=== PATIENT | female | born 1955 | race Caucasian/White ===

== ENCOUNTER 2018-03-26 09:35 | Emergency (ER) | payer OTHER ==
--- OUTSIDE RECORDS SUMMARY | 2018-03-26 09:42 | XMS REPORT ---
:1955 External Reference #:[id number] Author Organization [email or web address] Address [address] [place] [address] [place] [address] Phone [phone] Care Team Providers Name Role Phone Olga Bradford MD Primary Care Physician Unavailable Payers Type Date Identification Numbers Payment Provider Subscriber Commercial Effective: Policy Number: [id number] Formerly [facility], Later [facility] Uriel Clemons 2012 Group Number: [id number] [address] PayID: [id number] [place] [address] Medigap Part B Expires: 2012 Policy Number: [id number] [facility] Uriel Clemons Group Number: [id number] [address] PayID: [id number] [place] [address] Advance Directives Type Date Description Status Comment Other Directive 06/05/2015 Health Care Proxy Current and Verified Problems Date Description Provider Status Onset: 05/14/2016 Gastroesophageal reflux disease Gifty Gamble N.P. 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 Quit in 1981 Exercise Type/Frequency Exercises regularly Recumbent bike Allergies, Adverse Reactions, Alerts Date Description Reaction Status Severity Comments 05/25/2010 Erythromycin chest pain active Moderate 05/02/2015 Tegaderm active 10/28/2016 Macrobid Contact dermatitis, Urticaria active Moderate 04/13/2017 Oxycodone Contact dermatitis active Moderate 06/15/2017 Nickel active 06/15/2017 Zirconium Oxide active 06/15/2017 Aluminum active Medications Medication Date Status Form Strength Qnty SIG Indications Ordering Provider Hydrochlorothiazi 01/27 Active Tablets 25mg 90tab /2-1 by R60.0 s mouth Varn, N.P. every day Ventolin HFA 10/28 Active Aerosol 108(90Bas 1inha 1 to 2 J01.90 e) ler inhalatio Varn, N.P. mcg/Act ns every 4 hours as needed Compression 06/14 Active Misc 2unit knee high R60.0 Gifty Stockings s stockings Varn, N.P. 20 - 30 mm Fluticasone 12/14 Active Suspension 50mcg/Act 29.7m 1 spray J20.9 Gifty Propionate l each Varn, N.P. nostril twice a day Amoxicillin 05/01 Active Capsules 500mg 16cap take 4 s capsules Varn, N.P. by mouth 30 mintues before dental work Omeprazole 03/[address] 20mg 90cap take 1 K21.9 s capsule Varn, N.P. by mouth daily Cetirizine HCL Active Tablets 10mg 1 by Unknown /0000 mouth every day Melatonin Active Capsules 5mg 1 by Unknown /0000 mouth every night Aspirin Active Tablets 325mg 2 by Unknown /0000 mouth every day prn Ciclopirox Active Gel 0.77% apply to Unknown /0000 affected area twice a day Multi Vitamin Active Tablets 1 by Unknown Daily /0000 mouth every day Ciprofloxacin HCL 01/31 Hx Tablets 250mg 6tabs 1 by Olga /2018 mouth Cotton, - twice a M.D. 03/06 day for days Bactrim DS 07/19 Hx Tablets 800-160mg 10tab 1 by N39[address], - twice a M.D. 07/24 day x days Premarin 07/19 Hx Cream 0.625mg/G 1unit [address], - on by way M.D. 01/26 of 3 x weekly x 4 wks then 2 times a week for 3 wks then 1 time per week x 4 wks then stop Cipro 11/30 Hx Tablets 250mg 14tab one by N39.0 s nouth Varn, N.P. - twice 12/07 daily 7 days Amoxicillin/Clavu 10/28 Hx Tablets 875-125mg 20tab one J01.90 Gifty lanate Potassium s tablet by Varn, N.P. - mouth 11/07 daily for 10 days Cheratussin ac 10/28 Hx Syrup 100-10mg/ 120ml 1 -2 J01.90 5ML teaspoons Varn, N.P. 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 - twice 05/31 daily 7 days Macrobid 05/24 Hx Capsules 100mg 30cap 1 po N39.0 s postcoita Varn, N.P. 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 Levaquin 01/11 Hx Tablets 500mg 7tabs 1 by mouth Varn, N.P. - daily for 01/18 7 Amoxicillin/Clavu 01/06 Hx Tablets 875-125mg 20tab one J20.9 Gifty lanate Potassium s tablet by Varn, N.P. - mouth 01/11 daily for 10 days Flovent HFA 01/06 Hx Aerosol 110mcg/Ac 12gm 2 puffs J20.9 t twice Varn, N.P. - daily 01/20 Hydrochlorothiazi 01/06 Hx Tablets 25mg 30tab 1 by R60.0 Gifty s mouth Varn, N.P. - every day 04/06 Augmentin 12/14 Hx Tablets 875-125mg 20tab one by J01.00 s mouth Varn, N.P. - every 12 12/26 hours for ten days Ventolin HFA 12/14 Hx Aerosol 108(90Bas 1inha 1 to 2 J20.9 e) ler inhalatio Varn, N.P. - mcg/Act ns every 12/28 4 hours as needed Medrol 12/14 Hx Tablets 4mg 21tab 6 by J20.9 s mouth day Varn, N.P. - 1 5 by 12/20 mouth 2 4 by mouth day 3 3 by mouth day 4 2 by mouth day 5 1 by mouth day 6 Augmentin 08/25 Hx Tablets 875-125mg 20tab one by J01.00 s mouth Varn, N.P. - every 12 09/04 hours ten days Cipro 08/06 Hx Tablets 250mg 14tab one by N39.0 s nouth Varn, N.P. 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 - every day 06/14 Amoxicillin/Clavu 11/19 Hx Tablets 875-125mg 20tab one 461.0 Gifty lanate Potassium s tablet by Varn, N.P. - mouth 11/29 twice daily for 10 days Amoxicillin/Clavu 09/30 Hx Tablets 875-125mg 20tab one 461.0 [place] lanate s tablet by Varn, N.P. - mouth 10/10 twice daily for 10 days Benzonatate 09/30 Hx Capsules 100mg 30cap one by 461.0 s mouth Varn, N.P. - three 10/10 times daily as needed for cough Fluticasone 09/30 Hx Suspension 50mcg/Act 16gm 2 sprays 461.0 Gifty Propionate each Varn, N.P. - nostril 06/05 daily as needed Tamiflu 09/26 Hx Capsules 75mg 10cap 1 tab by 465.9 Olga /2015 s mouth Cotton, - twice a M.D. 01/02 day for days Cipro 08/22 Hx Tablets 250mg 14tab one by 599.0 s nouth Varn, N.P. - twice 08/29 daily for 7 days Fluticasone 03/21 Hx Suspension 50mcg/Act 16gm 1 sprays 477.9 Gifty each Varn, N.P. - nostril 08/22 daily /2014 Cipro 08/27 Hx Tablets 500mg 20tab 1 po bid s for 10 Varn, N.P. - days 09/06 Ciprofloxacin HCL 08/22 Hx Tablets 250mg 14tab one po 599.0 s bid for 7 Varn, N.P. - days 08/29 Fluticasone 08/22 Hx Suspension 50mcg/Act 16gm 2 sprays 477.9 Gifty Propionate each Varn, N.P. - nostril 03/21 daily as needed Augmentin 07/16 Hx Tablets 875-125mg 20tab one by Gifty s mouth Varn, N.P. - every 12 07/26 hours for ten days Augmentin 07/02 Hx Tablets 875-125mg 14tab one by Gifty /2013 s mouth Varn, N.P. - every 12 12/09 hours for 7 days Ciprofloxacin HCL 06/26 Hx Tablets 250mg 14tab one po 599.0 s bid for 7 Varn, N.P. - days 07/02 Ciprofloxacin HCL 01/10 Hx Tablets 500mg 6tabs take 1 599.0 tablet by Mary, - mouth M.D. 03/20 daily for 3 days Enablex 12/06 Hx Tablets ER 7.5mg 30tab one po qd 24HR s Varn, N.P. - 03/20 Amoxicillin 10/02 Hx Capsules 500mg 4caps Take 4 Capsules Varn, N.P. - By Mouth 06/26 Minutes Before Dental Work Loprox 11/15 Hx Cream 0.77% 60gm apply to 709.9 affected Sanchez, - area M.D. 06/26 daily prn Amoxicillin 04/07 Hx Capsules 500mg 4caps 4 po 30 minutes Klarissa, - before M.D., FACP 11/15 dental work Multivitamins 11/12 Hx Capsules QS 1 capsule carol;y Sanchez, - M.D. 03/21 Calcium 11/12 Hx Tablets 500-125mg 1 Tablet [facility] 500/Vitamin D -Unit Daily Sanchez - M.D. 01/13 Tylenol Arthritis 11/12 Hx Tablets ER 650mg 180ta 2 by Olga bs mouth Sanchez, - every 8 M.D. 03/21 hours needed Naproxen 05/25 Hx Tablets 500mg 180ta Take 1 bs Tablet Sanchez, - Twice A M.D. 04/13 Day Needed Ambien Hx Tablets 10mg 30tab 1/2 to 1 s tablet at [place], - bedtime M.D. 11/15 for sleep /2011 insomnia Vit D Hx Capsules 400Unit 1 po qd Unknown / - 01/10 Fish Oil Hx Capsules 1000mg 30cap 1 po qd Unknown / s - 01/10 Glucosamine Hx Capsules 1500Com 1 po qd Unknown Chondroitin 1500 /0000 Complex - 01/10 Melatonin Hx Capsules 5mg 30cap 1 po q hs Unknown / s - 06/26 Magnesium Hx Tablets 500mg 1 po qd Unknown /0000 - 03/21 Ciclopirox Hx Gel 0.77% 30uni apply Unknown /0000 ts twice a - day to 03/21 affected area for 2 weeks Calcium 1000 Hx Tablets 1 by Unknown /0000 mouth - every day 05/01 Probiotic Hx Capsules 1 by Unknown /0000 mouth - every day 12/14 Singulair Hx Tablets 10mg 1 by Unknown /0000 mouth - every day 04/13 Ciclopirox Hx Cream 0.77% apply to Unknown Ol /0000 affected - area 10/28 every day as needed Albuterol Sulfate Hx Nebulizer (2.5mg/3M 1 vial Unknown / L) 0.083% via - nebulizer 11/30 4 times daily as needed Medications Administered in Office Medication Date Status Form Strength Qnty SIG Indications Ordering Provider Celestone 3 mg Administered Injection Osmin and 3mg 016 MD Cathy Immunizations CPT Code Status Date Vaccine Lot # [id number] Given 03/21/2014 Zoster (Zostavax) [id number] 16280 Given 07/17/2009 Influenza Virus Vaccine, Pandemic Formulation [id number] Given 07/17/2009 Administration Swine Flu Shot [id number] Given 05/28/2009 Influenza Virus 3Yrs & Over 23381 Given 08/05/2008 Tdap - Tetanus/Diptheria/Acellular Pertussis [id number] Given 08/05/2008 Tdap - Tetanus/Diptheria/Acellular Pertussis Vital Signs Date Vital Result Comment 03/06/2018 Height 65 inches 5'5" Weight 215.00 lb Heart Rate 86 /min BP Systolic 128 mmHg BP Diastolic 76 mmHg Body Temperature 97.6 F O2 % BldC Oximetry 96 % BMI (Body Mass Index) 35.8 kg/m2 01/27/2018 Height 65 inches 5'5" Weight 220.00 lb Heart Rate 82 /min BP Systolic Sitting 137 mmHg BP Diastolic Sitting 82 mmHg O2 % BldC Oximetry 98 % BMI (Body Mass Index) 36.6 kg/m2 07/19/2017 Weight 215.00 lb Heart Rate 80 /min BP Systolic Sitting 122 mmHg BP Diastolic Sitting 90 mmHg Body Temperature 97.7 F O2 % BldC Oximetry 98 % 06/15/2017 Height 64 inches 5'4" Weight 214.75 lb Heart Rate 87 /min BP Systolic 136 mmHg BP Diastolic 82 mmHg O2 % BldC Oximetry 98 % BMI (Body Mass Index) 36.9 kg/m2 Waist Circumference 39.5 04/13/2017 Height 64 inches 5'4" Weight 219.00 lb Heart Rate 80 /min BP Systolic Sitting 136 mmHg BP Diastolic Sitting 84 mmHg O2 % BldC Oximetry 98 % BMI (Body Mass Index) 37.6 kg/m2 11/30/2016 Weight 222.25 lb Heart Rate 68 /min BP Systolic Sitting 134 mmHg BP Diastolic Sitting 80 mmHg Respiratory Rate 16 /min Body Temperature 96.5 F 10/28/2016 Weight 223.00 lb Heart Rate 85 /min BP Systolic Sitting 136 mmHg BP Diastolic Sitting 86 mmHg Body Temperature 97.2 F O2 % BldC Oximetry 97 % 06/23/2016 Heart Rate 78 /min BP Systolic Sitting 128 mmHg BP Diastolic Sitting 82 mmHg Respiratory Rate 15 /min Body Temperature 97.1 F O2 % BldC Oximetry 98 % 06/18/2016 Height 64 inches 5'4" Weight 214.00 lb Heart Rate 60 /min Respiratory Rate 16 /min Pain Level 8 BMI (Body Mass Index) 36.7 kg/m2 06/14/2016 Height 64 inches 5'4" Weight 213.00 lb Heart Rate 65 /min BP Systolic Sitting 130 mmHg BP Diastolic Sitting 72 mmHg Body Temperature 97.2 F O2 % BldC Oximetry 97 % BMI (Body Mass Index) 36.6 kg/m2 05/24/2016 Height 6.25 inches 0'6.25" Weight 214.00 lb Heart Rate 69 /min BP Systolic 130 mmHg BP Diastolic 82 mmHg O2 % BldC Oximetry 96 % BMI (Body Mass Index) 3851.3 kg/m2 04/06/2016 Weight 211.00 lb with shoes Heart Rate 91 /min BP Systolic Sitting 120 mmHg BP Diastolic Sitting 84 mmHg Body Temperature 97.1 F O2 % BldC Oximetry 96 % 01/07/2016 Weight 216.50 lb Heart Rate 69 /min BP Systolic Sitting 131 mmHg BP Diastolic Sitting 79 mmHg Body Temperature 98.0 F O2 % BldC Oximetry 98 % 12/15/2015 Weight 223.00 lb Heart Rate 78 /min BP Systolic Sitting 122 mmHg BP Diastolic Sitting 80 mmHg Respiratory Rate 14 /min Body Temperature 98.4 F O2 % BldC Oximetry 98 % 10/15/2015 Weight 223.75 lb Heart Rate 73 /min BP Systolic Sitting 120 mmHg BP Diastolic Sitting 70 mmHg Body Temperature 98.1 F O2 % BldC Oximetry 98 % 08/25/2015 Weight 224.00 lb Heart Rate 76 /min BP Systolic Sitting 132 mmHg BP Diastolic Sitting 72 mmHg Body Temperature 98.1 F O2 % BldC Oximetry 98 % 08/06/2015 Height 64.25 inches 5'4.25" Weight 226.50 lb Heart Rate 81 /min BP Systolic Sitting 134 mmHg BP Diastolic Sitting 76 mmHg Body Temperature 96.8 F O2 % BldC Oximetry 96 % BMI (Body Mass Index) 38.6 kg/m2 06/05/2015 Height 64.25 inches 5'4.25" Weight 216.25 lb Heart Rate 87 /min BP Systolic Sitting 122 mmHg BP Diastolic Sitting 74 mmHg Respiratory Rate 18 /min Body Temperature 96.4 F O2 % BldC Oximetry 98 % BMI (Body Mass Index) 36.8 kg/m2 05/02/2015 Weight 220.50 lb Heart Rate 79 /min BP Systolic Sitting 122 mmHg BP Diastolic Sitting 68 mmHg Body Temperature 98.4 F O2 % BldC Oximetry 98 % 01/15/2015 Weight 221.50 lb Heart Rate 70 /min BP Systolic Sitting 140 mmHg BP Diastolic Sitting 88 mmHg Body Temperature 98.6 F 01/02/2015 Weight 220.50 lb Heart Rate 90 /min BP Systolic Sitting 124 mmHg BP Diastolic Sitting 88 mmHg Body Temperature 97.1 F O2 % BldC Oximetry 97 % 11/19/2014 Weight 220.00 lb Heart Rate 70 /min BP Systolic Sitting 132 mmHg BP Diastolic Sitting 70 mmHg Body Temperature 97.9 F 09/30/2014 Height 65 inches 5'5" Weight 220.00 lb Heart Rate 93 /min BP Systolic 134 mmHg BP Diastolic 73 mmHg Body Temperature 99.9 F BMI (Body Mass Index) 36.6 kg/m2 09/26/2014 Weight 220.25 lb Heart Rate 85 /min BP Systolic Sitting 125 mmHg BP Diastolic Sitting 73 mmHg Body Temperature 97.7 F O2 % BldC Oximetry 95 % 08/22/2014 Height 65 inches 5'5" Weight 223.00 lb Heart Rate 69 /min BP Systolic 130 mmHg BP Diastolic 80 mmHg Body Temperature 97.9 F BMI (Body Mass Index) 37.1 kg/m2 04/25/2014 Height 65 inches 5'5" Weight 216.00 lb Heart Rate 68 /min BP Systolic Sitting 108 mmHg BP Diastolic Sitting 78 mmHg BMI (Body Mass Index) 35.9 kg/m2 03/21/2014 Height 65 inches 5'5" Weight 209.75 lb Heart Rate 72 /min BP Systolic Sitting 126 mmHg BP Diastolic Sitting 74 mmHg Body Temperature 97.5 F BMI (Body Mass Index) 34.9 kg/m2 08/22/2013 Weight 218.00 lb Heart Rate 82 /min BP Systolic Sitting 122 mmHg BP Diastolic Sitting 84 mmHg Body Temperature 98.7 F 06/26/2013 Weight 212.50 lb Heart Rate 88 /min BP Systolic 130 mmHg BP Diastolic 84 mmHg 03/20/2013 Height 65 inches 5'5" Weight 206.50 lb Heart Rate 84 /min BP Systolic Sitting 114 mmHg BP Diastolic Sitting 76 mmHg BMI (Body Mass Index) 34.4 kg/m2 01/10/2013 Weight 210.50 lb Heart Rate 64 /min BP Systolic Sitting 138 mmHg BP Diastolic Sitting 80 mmHg Body Temperature 97.7 F 05/17/2012 Height 65.5 inches 5'5.50" Weight 208.00 lb Heart Rate 64 /min BP Systolic Sitting 128 mmHg BP Diastolic Sitting 78 mmHg BMI (Body Mass Index) 34.1 kg/m2 11/16/2011 Height 65.5 inches 5'5.50" Weight 211.00 lb Heart Rate 68 /min BP Systolic Sitting 120 mmHg BP Diastolic Sitting 74 mmHg BMI (Body Mass Index) 34.6 kg/m2 01/13/2011 Height 65.5 inches 5'5.50" Weight 208.00 lb Heart Rate 78 /min BP Systolic Sitting 120 mmHg BP Diastolic Sitting 80 mmHg BMI (Body Mass Index) 34.1 kg/m2 11/12/2010 Height 65.5 inches 5'5.50" Weight 206.50 lb Heart Rate 60 /min BP Systolic 124 mmHg BP Diastolic 70 mmHg BMI (Body Mass Index) 33.8 kg/m2 05/26/2010 Weight 210.25 lb Heart Rate 78 /min BP Systolic 110 mmHg BP Diastolic 78 mmHg Results Test Date Test Result H/L Range Note Comp Metabolic Panel 01/27/2018 Sodium 139 mmol/L 135-145 Potassium 4.0 mmol/L 3.5-5.0 Chloride 105 mmol/L 101-111 Co2 Carbon Dioxide 27 mmol/L 22-32 Anion Gap 7 mmol/L 2-11 Glucose 96 mg/dL 70-100 Blood Urea Nitrogen 14 mg/dL 6-24 Creatinine 0.59 mg/dL 0.51-0.95 BUN/Creatinine Ratio 23.7 High 8-20 Calcium 9.1 mg/dL 8.6-10.3 Total Protein 6.8 g/dL 6.4-8.9 Albumin 4.0 g/dL 3.2-5.2 Globulin 2.8 g/dL 2-4 Albumin/Globulin Ratio 1.4 1-3 Total Bilirubin 0.50 mg/dL 0.2-1.0 Alkaline Phosphatase 86 U/L 34-104 Alt 13 U/L 7-52 Ast 19 U/L 13-39 Egfr Non- 102.6 >60 Egfr 124.2 >60 1 CBC Auto Diff 01/27/2018 White Blood Count 6.5 10^3/uL 3.5-10.8 Red Blood Count 4.02 10^6/uL 4.00-5.40 Hemoglobin 13.0 g/dL 12.0-16.0 Hematocrit 39 % 35-47 Mean Corpuscular Volume 97 fL 80-97 Mean Corpuscular Hemoglobin 32 pg High 27-31 Mean Corpuscular HGB Conc 33 g/dL 31-36 Red Cell Distribution Width 13 % 10.5-15 Platelet Count 281 10^3/uL 150-450 Mean Platelet Volume 10.0 um3 7.4-10.4 Abs Neutrophils 3.5 10^3/uL 1.5-7.7 Abs Lymphocytes 2.1 10^3/uL 1.0-4.8 Abs Monocytes 0.7 10^3/uL 0-0.8 Abs Eosinophils 0.2 10^3/uL 0-0.6 Abs Basophils 0 10^3/uL 0-0.2 Abs Nucleated RBC 0 10^3/uL Granulocyte % 53.6 % 38-83 Lymphocyte % 32.5 % 25-47 Monocyte % 10.3 % High 0-7 Eosinophil % 2.9 % 0-6 Basophil % 0.7 % 0-2 Nucleated Red Blood Cells % 0.1 Urinalysis Profile 01/27/2018 Urine Color Jillian Urine Appearance Cloudy Urine Specific [place] 1.018 1.010-1.030 Urine pH 5.0 5-9 Urine Urobilinogen Negative Negative Urine Ketones Negative Negative Urine Protein Negative Negative Urine Leukocytes 3+ Negative Urine Blood 2+ Negative * * Negative 2 Urine Nitrite Positive Negative Urine Bilirubin Negative Negative Urine Glucose Negative Negative Urine White Blood Cell 3+(>20/hpf) Absent Urine Red Blood Cell 3+(>10/hpf) Absent Urine Bacteria 1+ Absent Urine Squamous Epithelial Cell Present Absent Laboratory test finding 01/27/2018 TSH (Thyroid Stim Horm) 3.03 mcIU/mL 0.34-5.60 B-Type Natriuretic Peptide BNP 16 pg/mL 3 Urine Culture And 01/27/2018 Urine Culture SEE RESULT BELOW 4 Sensitivities Urine Culture And 07/19/2017 Urine Culture SEE RESULT BELOW 5 Sensitivities Ua Routine 07/19/2017 Ua Specific [place] 1.010 Ua PH 5 Ua Color straw yellow Ua Appera cloudy Ua WBC ++ Ua Protein trace Ua Glucose norm Ua Ketones - Ua Bilirubin - Ua Urobilinogen norm Ua Nitrite - Ua Occult Blood 250+ Lipid Profile (Trig/Chol/HDL) 06/03/2017 Triglycerides 100 mg/dL 6 Cholesterol 208 mg/dL 7 HDL Cholesterol 72.8 mg/dL 8 LDL Cholesterol 115 mg/dL 9 Comp Metabolic Panel 06/03/2017 Sodium 137 mmol/L 133-145 Potassium 4.4 mmol/L 3.5-5.0 Chloride 103 mmol/L 101-111 Co2 Carbon Dioxide 27 mmol/L 22-32 Anion Gap 7 mmol/L 2-11 Glucose 83 mg/dL 70-100 Blood Urea Nitrogen 14 mg/dL 6-24 Creatinine 0.69 mg/dL 0.51-0.95 BUN/Creatinine Ratio 20.3 High 8-20 Calcium 9.6 mg/dL 8.6-10.3 Total Protein 7.2 g/dL 6.4-8.9 Albumin 4.0 g/dL 3.2-5.2 Globulin 3.2 g/dL 2-4 Albumin/Globulin Ratio 1.3 1-3 Total Bilirubin 0.40 mg/dL 0.2-1.0 Alkaline Phosphatase 96 U/L 34-104 Alt 9 U/L 7-52 Ast 16 U/L 13-39 Egfr Non- 85.7 >60 Egfr 110.2 >60 10 Urine Culture And 11/30/2016 Urine Culture SEE RESULT BELOW 11 Sensitivities Ua Routine 11/30/2016 Ua Specific [place] 1.005 Ua PH 5 Ua Color gold Ua Appera clear Ua WBC 1+ Ua Protein neg Ua Glucose neg Ua Ketones neg Ua Bilirubin neg Ua Urobilinogen neg Ua Nitrite neg Ua Occult Blood neg Lipid Profile (Trig/Chol/HDL) 06/11/2016 Triglycerides 86 mg/dL 12 Cholesterol 220 mg/dL 13 HDL Cholesterol 94.5 mg/dL 14 LDL Cholesterol 108 mg/dL 15 Comp Metabolic Panel 06/11/2016 Sodium 141 mmol/L 133-145 Potassium 4.2 mmol/L 3.5-5.0 Chloride 107 mmol/L 101-111 Co2 Carbon Dioxide 27 mmol/L 22-32 Anion Gap 7 mmol/L 2-11 Glucose 91 mg/dL 70-100 Blood Urea Nitrogen 15 mg/dL 6-24 Creatinine 0.52 mg/dL 0.51-0.95 BUN/Creatinine Ratio 28.8 High 8-20 Calcium 9.4 mg/dL 8.6-10.3 Total Protein 6.9 g/dL 6.4-8.9 Albumin 3.9 g/dL 3.2-5.2 Globulin 3.0 g/dL 2-4 Albumin/Globulin Ratio 1.3 1-3 Total Bilirubin 0.70 mg/dL 0.2-1.0 Alkaline Phosphatase 78 U/L 34-104 Alt 11 U/L 7-52 Ast 16 U/L 13-39 Egfr Non- 119.1 >60 Egfr 153.2 >60 16 Ua Routine 05/24/2016 Ua Specific [place] 1.005 Ua PH 5 Ua Color yellow Ua Appera cloudy Ua WBC +++ Ua Protein trace Ua Glucose negative Ua Ketones negative Ua Bilirubin negative Ua Urobilinogen normal Ua Nitrite + Ua Occult Blood +++ Urine Culture And 05/24/2016 Urine Culture SEE RESULT BELOW 17 Sensitivities Urine Culture And 04/06/2016 Urine Culture SEE RESULT BELOW 18 Sensitivities Urine Culture And 10/15/2015 Urine Culture SEE RESULT BELOW 19 Sensitivities Ua Routine 10/15/2015 Ua Specific [place] 1.015 Ua PH 5 Ua Color yellow Ua Appera clear Ua WBC negative Ua Protein negative Ua Glucose normal Ua Ketones negative Ua Bilirubin negative Ua Urobilinogen negative Ua Nitrite negative Ua Occult Blood negative Laboratory test finding 08/06/2015 Urine Culture And SEE RESULT BELOW 20 Sensitivities Ua Routine 08/06/2015 Ua Specific [place] 1.005 Ua PH 6 Ua Color yellow Ua Appera clear Ua WBC trace Ua Protein neg Ua Glucose neg Ua Ketones neg Ua Bilirubin neg Ua Urobilinogen neg Ua Nitrite neg Ua Occult Blood trace Lipid Profile (Trig/Chol/HDL) 05/26/2015 Triglycerides 56 mg/dL 21, 22 Cholesterol 184 mg/dL 21, 23 HDL Cholesterol 83.1 mg/dL 21, 24 LDL Cholesterol 90 mg/dL 21, 25 Laboratory test finding 05/26/2015 Glucose 95 mg/dL 70-100 21, 26 Ua Routine 08/22/2014 Ua Specific [place] 1.000 Ua PH 7 Ua Color yellow Ua Appera clear Ua WBC negative Ua Protein negative Ua Glucose negative Ua Ketones trace Ua Bilirubin negative Ua Urobilinogen normal Ua Nitrite negative Ua Occult Blood negative Urine Culture And Sensitivities 08/22/2014 Urine Culture (SEE NOTE) 27 Urinalysis Profile 08/22/2014 Urine Color Straw Urine Appearance Clear Urine Specific [place] 1.003 Low 1.010-1.030 Urine pH 7.0 5-9 Urine Urobilinogen Negative Negative Urine Ketones Negative Negative Urine Protein Negative Negative Urine Leukocytes Negative Negative Urine Blood Negative Negative Urine Nitrite Negative Negative Urine Bilirubin Negative Negative Urine Glucose Negative Negative Laboratory test finding 03/05/2014 Glucose 75 mg/dL 70-100 28, 29 Lipid Profile (Trig/Chol/HDL) 03/05/2014 Triglycerides 128 mg/dL 28, 30 Cholesterol 185 mg/dL 28, 31 HDL Cholesterol 70.6 mg/dL 28, 32 LDL Cholesterol 89 mg/dL 28, 33 Laboratory test finding 11/15/2013 Blood Urea Nitrogen 15 mg/dL 6-24 Creatinine 11/15/2013 Creatinine 0.63 mg/dL 0.51-0.95 Egfr Non- 96.4 >60 Egfr 124.0 >60 34 Urine Culture And Sensitivities 08/22/2013 Urine Culture (SEE NOTE) 35 Ua Routine 08/22/2013 Ua Specific [place] 1.005 Ua PH 7 Ua Color yellow Ua Appera cloudy Ua WBC moderate Ua Protein neg Ua Glucose neg Ua Ketones neg Ua Bilirubin neg Ua Urobilinogen neg Ua Nitrite positive Ua Occult Blood non hemo trace Ua Routine 06/26/2013 Ua Specific [place] 1.020 Ua PH 5 Ua Color yel Ua Appera cloudy Ua WBC mod Ua Protein 100 Ua Glucose neg Ua Ketones neg Ua Bilirubin sm Ua Urobilinogen neg Ua Nitrite positive Ua Occult Blood large Urine Culture And 06/26/2013 Urine Culture (SEE NOTE) 36 Sensitivities Laboratory test finding 03/20/2013 Hepatitis C Antibody Nonreactive Nonreactive Ua Routine 01/10/2013 Ua Specific [place] 1.020 Ua PH 5 Ua Color dk yellow Ua Appera cloudy Ua WBC large+ Ua Protein trace Ua Glucose neg Ua Ketones neg Ua Bilirubin small Ua Urobilinogen neg Ua Nitrite neg Ua Occult Blood neg Urine Culture And Sensitivities 01/10/2013 Urine Culture (SEE NOTE) 37 Laboratory test finding 01/02/2013 Glucose 91 mg/dL 70-100 38 Lipid Profile (Trig/Chol/HDL) 01/02/2013 Triglycerides 96 mg/dL 40-200 Cholesterol 176 mg/dL Less than 200 HDL Cholesterol 66 mg/dL High 40-60 39 Cholesterol/HDL Ratio 2.7 Average 1-4.44 LDL Cholesterol 90.8 Less Than 100 40 Ua Routine 05/17/2012 Ua Specific [place] 1.020 Ua PH 5 Ua Color dark yellow Ua Appera slight cloudy Ua WBC small Ua Protein neg Ua Glucose neg Ua Ketones neg Ua Bilirubin small Ua Urobilinogen neg Ua Nitrite neg Ua Occult Blood neg Laboratory test finding 12/06/2011 TSH 2.95 MIU/ML 0.34-5.60 Lipid Profile (Trig/Chol/HDL) 12/06/2011 Triglyceride 70 mg/dL 40-200 Cholesterol 181 mg/dL Less Than 200 41 High Density Lipoprotein 71 mg/dL High 40-60 42 Cholesterol/HDL Ratio 2.55 AVERAGE 1-4.44 Low Density Lipoprotein 96 mg/dL Less Than 100 43 Comp Metabolic Panel 12/06/2011 Sodium 138 mmol/L 135-145 Potassium 3.9 mmol/L 3.5-5.0 Chloride 104 mmol/L 101-111 Co2 (Carbon Dioxide) 30.0 mmol/L 22-32 Anion Gap 4.0 mmol/L 2-11 44 Glucose 89 mg/dL 70-100 BUN 10 mg/dL 6-24 Creatinine 0.7 mg/dL 0.50-1.40 One Over Creatinine 1.42 BUN/Creatinine Ratio 14.3 8-20 Calcium 9.4 mg/dL 8.1-9.9 Total Protein 6.6 GM/DL 6.2-8.1 Albumin 4.0 GM/DL 3.6-5.4 Globulin 2.6 GM/DL 2-4 Albumin/Globulin Ratio 1.5 1-3 Bilirubin Total 0.7 mg/dL 0.4-1.5 45 Alkaline Phosphatase 81 U/L 30-110 Alt (SGPT) 28 U/L 14-54 Ast (Sgot) 29 U/L 12-42 eGFR Non- 85.9 > 60 eGFR 110.5 > 60 46 Laboratory test 11/16/2011 Cytology <SEE 47 finding NOTE> CBC With Manual 01/14/2011 White Blood 4.7 CUMM Low 4.8-10.8 Diff Count Red Cell Count 3.77 CUMM Low 4.2-5.4 Hemoglobin 12.2 g/dL 12.0-16.0 Hematocrit 37 % 35-47 Mean Corpuscular Volume 97 um3 79-97 Mean Corpuscular Hemoglob 32 pg High 27-31 Mean Corpuscular HGB Cone 33 g/dL 32-36 Redcell Distribution WDTH 13 % 10.5-15 Platelet Count 314 CUMM 150-450 Mean Platelet Volume 10.1 um3 7.4-10.4 Polysegmented Neutrophil 49 % 38-83 Lymphocyte 36 % 25-47 Monocyte 11 % 0-13 Eosinophil 1 % 0-6 Basophil 1 % 0-2 Atypical Lymph 2 % 0-6 Absolute Neutrophil Count 2.3 Anisocytosis SLIGHT Macrocytosis SLIGHT Platelet Evaluation LARGE Comp Metabolic Panel 01/14/2011 Sodium 140 mmol/L 135-145 Potassium 4.1 mmol/L 3.5-5.0 Chloride 105 mmol/L 101-111 Co2 (Carbon Dioxide) 29.0 mmol/L 22-32 Anion Gap 6.0 mmol/L 2-11 48 Glucose 82 mg/dL 70-100 BUN 13 mg/dL 6-24 Creatinine 0.60 mg/dL 0.50-1.40 One Over Creatinine 1.60 BUN/Creatinine Ratio 21.7 High 8-20 Calcium 9.2 mg/dL 8.1-9.9 Total Protein 6.2 GM/DL 6.2-8.1 Albumin 4.1 GM/DL 3.6-5.4 Globulin 2.1 GM/DL 2-4 Albumin/Globulin Ratio 2.0 1-3 Bilirubin Total 0.8 mg/dL 0.4-1.5 49 Alkaline Phosphatase 67 U/L 30-110 Alt (SGPT) 19 U/L 14-54 Ast (Sgot) 26 U/L 12-42 eGFR Non- 103.0 > 60 eGFR 132.5 > 60 50 Ssa/SSB 12/31/2010 Ssa NEGATIVE Negative SSB NEGATIVE Negative Nain (Antinuclear Antibodies) 12/31/2010 Antinuclear AB NEGATIVE Negative Reviewed By (SEE NOTE) 51 Laboratory test finding 12/31/2010 Erythrocyte Sed Rate 12 MM/HR 0-30 Syphilis IgG NON-REACTIVE Nonreactive 52 Complement C3 128 mg/dL 75-175 53 Complement C4 19 mg/dL 14-40 54 Lyme Disease Serology Negative Negative 55 CBC Auto Diff 12/31/2010 White Blood Count 6.2 CUMM 4.8-10.8 Red Cell Count 3.57 CUMM Low 4.2-5.4 Hemoglobin 11.7 g/dL Low 12.0-16.0 Hematocrit 35 % 35-47 Mean Corpuscular Volume 98 um3 High 79-97 Mean Corpuscular Hemoglob 33 pg High 27-31 Mean Corpuscular HGB Cone 33 g/dL 32-36 Redcell Distribution WDTH 13 % 10.5-15 Platelet Count 266 CUMM 150-450 Mean Platelet Volume 10.2 um3 7.4-10.4 Gran % 56.9 % 38-83 Lymph % 31.8 % 25-47 Mononuclear % 8.3 % 1-9 Eosinophil % 2.4 % 0-6 Basophil % 0.6 % 0-2 Abs Lymphs 2.0 1.0-4.8 Abs Mononuclear 0.5 0-0.8 Absolute Neutrophil Count 3.5 1.5-7.7 Abs Eosinophils 0.1 0-0.6 Abs Basophils 0 0-0.2 Laboratory test finding 12/31/2010 Thyroxine Free 1.06 ng/dL 0.61-1.24 T3 Total 0.99 NG/ML 0.5-1.7 TSH 1.65 MIU/ML 0.34-5.60 Rheumatoid Factor < 20.0 IU/mL Less Than 20 Basic Metabolic Panel 12/31/2010 Sodium 137 mmol/L 135-145 Potassium 4.0 mmol/L 3.5-5.0 Chloride 105 mmol/L 101-111 Co2 (Carbon Dioxide) 26.0 mmol/L 22-32 Anion Gap 6.0 mmol/L 2-11 56 Glucose 76 mg/dL 70-100 BUN 10 mg/dL 6-24 Creatinine 0.60 mg/dL 0.50-1.40 One Over Creatinine 1.60 BUN/Creatinine Ratio 16.7 8-20 Calcium 9.0 mg/dL 8.1-9.9 eGFR Non- 103.0 > 60 eGFR 132.5 > 60 57 1 Because ethnic data is not always readily available, this report includes an eGFR for both -Americans and non- Americans. The National Kidney Disease Education Program (NKDEP) does not endorse the use of the MDRD equation for patients that are not between the ages of 18 and 70, are , have extremes of body size, muscle mass, or nutritional status, or are non- or non-. According to the National Kidney Foundation, irrespective of diagnosis, the stage of the disease is based on the level of kidney function: Stage Description GFR(mL/min/1.73 m(2)) 1 Kidney damage with normal or decreased GFR 90 2 Kidney damage with mild decrease in GFR 60-89 3 Moderate decrease in GFR 30-59 4 Severe decrease in GFR 15-29 5 Kidney failure <15 (or dialysis) 2 *Ascorbic acid is present which may interfere with detection of blood. 3 >100 to <200 pg/mL: likely compensated congestive heart failure (CHF) 200 to 400 pg/mL: likely moderate CHF >400 pg/mL: likely moderate to severe CHF 4 SEE RESULT BELOW Name: URIEL CLEMONS : [address]: Olga Bradford MD Acct: [id number] Unit: [id number] AGE: 62 Location: [facility] Re01/27/18 SEX: F Status: REG REF SPEC: [id number] MARK: 01/27/[address]: Olga Bradford MD REQ: [id number] RECD: 01/27/18 STATUS: COMP _ SOURCE: URINE SPDESC: ORDERED: Urine Culture Procedure Result Reported Site Urine Culture Final 01/29/18- 0840 ML Organism 1 ESCHERICHIA COLI [place] Count >100,000 (Many) CFU/ML 1. ESCHERICHIA COLI M.I.C. RX --------- ------ Ampicillin >=32 R Cefazolin <=4 S Cefepime <=1 S Ceftriaxone <=1 S Ciprofloxacin 0.5 S Gentamicin >=16 R Levofloxacin 1 S Meropenem <=0.25 S Nitrofurantoin <=16 S Tetracycline 2 S Pipercillin/Tazobactam <=4 S Trimethoprim/Sulfamethoxazole >=320 R Amoxicillin/Clavulanic Acid 8 S Aztreonam <=1 S Contact the Microbiology Department for any additional antibiotic reporting. * - [facility] . END OF REPORT DEPARTMENT OF PATHOLOGY, [address] [place] [address] Yony Crawford M.D. Director [facility] # [id number] 5 SEE RESULT BELOW Name: URIEL CLEMONS : [address]: Wendy Way MD Acct: [id number] Unit: [id number] AGE: 62 Location: [facility] Re07/19/17 SEX: F Status: REG REF SPEC: [id number] MARK: 07/19/17-1046 [facility] DR: Wendy Way MD REQ: [id number] RECD: 07/19/17-1232 STATUS: COMP _ SOURCE: URINE SPDESC: ORDERED: Urine Culture COMMENTS: [id number] Urine Source: Random Procedure Result Reported Site Urine Culture Final 07/21/17- 1213 ML Organism 1 KLEBSIELLA PNEUMONIAE [place]rest[place] Count 75-100,000 (Many) CFU/ML 1. KLEBSIELLA PNEUMONIAE M.I.C. RX --------- ------ Ampicillin >=32 R Cefazolin <=4 S Cefepime <=1 S Ceftriaxone <=1 S Ciprofloxacin <=0.25 S Gentamicin <=1 S Levofloxacin <=0.12 S Meropenem <=0.25 S Nitrofurantoin <=16 S Tetracycline >=16 R Pipercillin/Tazobactam 32 I Trimethoprim/Sulfamethoxazole <=20 S Amoxicillin/Clavulanic Acid 8 S Aztreonam <=1 S Contact the Microbiology Department for any additional antibiotic reporting. * ML - MAIN LAB ([facility]) . END OF REPORT * ML=Testing performed at Main Lab DEPARTMENT OF PATHOLOGY, [address] [place] [address] Yony Crawford M.D. Director [facility] # [id number] 6 Desirable: <150 Borderline High: 150-199 High: 200-499 Very High: >500 7 Desirable: <200 Borderline High: 200-239 High: >239 8 Low: <40 Desirable: 40-60 High: >60 9 Desirable: <100 Near Optimal: 100-129 Borderline High: 130-159 High: 160-189 Very High: >189 10 Because ethnic data is not always readily available, this report includes an eGFR for both -Americans and non- Americans. The National Kidney Disease Education Program (NKDEP) does not endorse the use of the MDRD equation for patients that are not between the ages of 18 and 70, are , have extremes of body size, muscle mass, or nutritional status, or are non- or non-. According to the National Kidney Foundation, irrespective of diagnosis, the stage of the disease is based on the level of kidney function: Stage Description GFR(mL/min/1.73 m(2)) 1 Kidney damage with normal or decreased GFR 90 2 Kidney damage with mild decrease in GFR 60-89 3 Moderate decrease in GFR 30-59 4 Severe decrease in GFR 15-29 5 Kidney failure <15 (or dialysis) 11 SEE RESULT BELOW Name: URIEL CLEMONS : [address]: Gifty Gamble NP Acct: [id number] Unit: [id number] AGE: 61 Location: [facility] Re11/30/16 SEX: F Status: REG REF SPEC: [id number] MARK: 11/30/16-[address]: Gifty Gamble NP REQ: [id number] RECD: 11/30/16 STATUS: COMP _ SOURCE: URINE SPDESC: ORDERED: Urine Culture COMMENTS: [id number] Urine Source: Random Procedure Result Reported Site Urine Culture Final 12/02/16- 944 ML No growth of clinically significant organisms * ML - MAIN LAB ([facility]) . END OF REPORT * ML=Testing performed at Main Lab DEPARTMENT OF PATHOLOGY, [address] [place] [address] Yony Crawford M.D. Director [facility] # [id number] 12 Desirable <150 Borderline high 150-199 High 200-499 Very High >500 13 Desirable <200 Borderline high 200-239 High >239 14 Low <40 Desirable: 40-60 High: >60 15 Desirable: <100 mg/dL Near Optimal: 100-129 mg/dL Borderline High: 130-159 mg/dL High: 160-189 mg/dL Very High: >189 mg/dL 16 Because ethnic data is not always readily available, this report includes an eGFR for both -Americans and non- Americans. The National Kidney Disease Education Program (NKDEP) does not endorse the use of the MDRD equation for patients that are not between the ages of 18 and 70, are , have extremes of body size, muscle mass, or nutritional status, or are non- or non-. According to the National Kidney Foundation, irrespective of diagnosis, the stage of the disease is based on the level of kidney function: Stage Description GFR(mL/min/1.73 m(2)) 1 Kidney damage with normal or decreased GFR 90 2 Kidney damage with mild decrease in GFR 60-89 3 Moderate decrease in GFR 30-59 4 Severe decrease in GFR 15-29 5 Kidney failure <15 (or dialysis) 17 SEE RESULT BELOW Name: URIEL CLEMONS : [address]: Gifty Gamble NP Acct: [id number] Unit: [id number] AGE: 61 Location: [facility] Re05/24/16 SEX: F Status: REG REF SPEC: [id number] MARK: 05/24/[address]: Gifty Gamble NP REQ: [id number] RECD: 05/24/16 STATUS: COMP _ SOURCE: URINE SPDESC: ORDERED: Urine Culture COMMENTS: [id number] Procedure Result Reported Site Urine Culture Final 05/26/16- 15 ML Organism 1 ESCHERICHIA COLI [place] Count >100,000 (Many) CFU/ML 1. ESCHERICHIA COLI M.I.C. RX --------- ------ Ampicillin <=2 S Cefazolin <=4 S Cefepime <=1 S Ceftriaxone <=1 S Ciprofloxacin <=0.25 S Gentamicin <=1 S Levofloxacin 1 S Meropenem <=0.25 S Nitrofurantoin <=16 S Tetracycline <=1 S Pipercillin/Tazobactam <=4 S Trimethoprim/Sulfamethoxazole <=20 S Amoxicillin/Clavulanic Acid <=2 S Aztreonam <=1 S Contact the Microbiology Department for any additional antibiotic reporting. * ML - MAIN LAB ([facility]) . END OF REPORT * ML=Testing performed at Main Lab DEPARTMENT OF PATHOLOGY, [address] [place] [address] Yony Crawford M.D. Director [facility] # [id number] 18 SEE RESULT BELOW Name: KACIURIEL : [address]: Miky Rodriguez NP Acct: [id number] Unit: [id number] AGE: 61 Location: [facility] Re04/06/16 SEX: F Status: REG REF SPEC: [id number] MARK: 04/06/16-[address]: Miky Rodriguez NP REQ: [id number] RECD: 04/06/16 STATUS: COMP _ SOURCE: URINE SPDESC: ORDERED: Urine Culture COMMENTS: [id number] Procedure Result Reported Site Urine Culture Final 04/08/16- 0802 ML Organism 1 ESCHERICHIA COLI [place] Count >100,000 (Many) CFU/ML 1. ESCHERICHIA COLI M.I.C. RX --------- ------ Ampicillin <=2 S Cefazolin <=4 S Cefepime <=1 S Ceftriaxone <=1 S Ciprofloxacin <=0.25 S Gentamicin <=1 S Levofloxacin <=0.12 S Meropenem <=0.25 S Nitrofurantoin <=16 S Tetracycline <=1 S Pipercillin/Tazobactam <=4 S Trimethoprim/Sulfamethoxazole <=20 S Amoxicillin/Clavulanic Acid <=2 S Aztreonam <=1 S Contact the Microbiology Department for any additional antibiotic reporting. * ML - MAIN LAB ([facility]) . END OF REPORT * ML=Testing performed at Main Lab DEPARTMENT OF PATHOLOGY, [address] [place] [address] Yony Crawford M.D. Director [facility] # [id number] 19 SEE RESULT BELOW Name: URIEL CLEMONS : [address]: Gifty Gamble NP Acct: [id number] Unit: [id number] AGE: 60 Location: [facility] Re10/15/15 SEX: F Status: REG REF SPEC: [id number] MARK: 10/15/15-[address]: Gifty Gamble NP REQ: [id number] RECD: 10/15/15-1619 STATUS: COMP _ SOURCE: URINE SPDESC: ORDERED: Urine Culture Procedure Result Reported Site Urine Culture Final 10/16/15- 1320 ML No Growth (<1,000 CFU/mL) * ML - MAIN LAB ([facility]) . END OF REPORT * ML=Testing performed at Main Lab DEPARTMENT OF PATHOLOGY, [address] [place] [address] Yony Crawford M.D. Director [facility] # [id number] 20 SEE RESULT BELOW Name: URIEL CLEMONS : [address]: Gifty Gamble NP Acct: [id number] Unit: [id number] AGE: 60 Location: [facility] Re08/06/15 SEX: F Status: REG REF SPEC: [id number] MARK: 08/06/15-[address]: Gifty Gamble NP REQ: [id number] RECD: 08/06/15 STATUS: COMP _ SOURCE: URINE SPDESC: ORDERED: Urine Culture Procedure Result Reported Site Urine Culture Final 08/08/15- 1119 ML No growth of clinically significant organisms * ML - MAIN LAB ([facility]) . END OF REPORT * ML=Testing performed at Main Lab DEPARTMENT OF PATHOLOGY, [facility] [employer] [place] [address] Yony Crawford M.D. Director [facility] # [id number] 21 FASTING 22 Desirable <150 Borderline high 150-199 High 200-499 Very High >500 23 Desirable <200 Borderline high 200-239 High >239 24 Low <40 Desirable: 40-60 High: >60 25 Desirable: <100 mg/dL Near Optimal: 100-129 mg/dL Borderline High: 130-159 mg/dL High: 160-189 mg/dL Very High: >189 mg/dL 26 FASTING 27 RUN DATE: 08/24/14 [facility] LAB LIVE PAGE 1 RUN TIME: 924 [facility] [employer] [employer] [place], [place] [address] Specimen Inquiry Name: URIEL CLEMONS : [address]: Gifty Gamble NP Acct: [id number] Unit: [id number] AGE: 59 Location: [facility] Re08/22/14 SEX: F Status: REG REF SPEC: [id number] MARK: 08/22/14-[address]: Gifty Gamble NP REQ: [id number] RECD: 08/22/14 STATUS: COMP _ SOURCE: URINE SPDESC: ORDERED: Urine Culture QUERIES: Provider Requisition # [id number] Procedure Result Verified Site Urine Culture Final 08/24/14- 923 ML Organism 1 ESCHERICHIA COLI [place] Count 10-25,000 (Moderate) CFU/ML 1. ESCHERICHIA COLI M.I.C. RX --------- ------ Ampicillin 4 S Cefazolin <=4 S Cefepime <=1 S Ceftriaxone <=1 S Ciprofloxacin <=0.25 S Gentamicin <=1 S Levofloxacin <=0.12 S Meropenem <=0.25 S Nitrofurantoin <=16 S Tetracycline <=1 S Pipercillin/Tazobactam <=4 S Trimethoprim/Sulfamethoxazole <=20 S Amoxicillin/Clavulanic Acid <=2 S Aztreonam <=1 S Contact the Microbiology Department for any additional antibiotic reporting. END OF REPORT * ML=Testing performed at Main Lab DEPARTMENT OF PATHOLOGY, [facility] [employer] [place], [place] [address] Yony Crawford M.D. Director [facility] # [id number] 28 FASTING 12 HOUR 29 FASTING 12 HOUR 30 Desirable <150 Borderline high 150-199 High 200-499 Very High >500 31 Desirable <200 Borderline high 200-239 High >239 32 Low <40 Desirable: 40-60 High: >60 33 Desirable <100 Near Optimal 100-129 Borderline high 130-159 High 160-189 Very High >189 34 Because ethnic data is not always readily available, this report includes an eGFR for both -Americans and non- Americans. The National Kidney Disease Education Program (NKDEP) does not endorse the use of the MDRD equation for patients that are not between the ages of 18 and 70, are , have extremes of body size, muscle mass, or nutritional status, or are non- or non-. According to the National Kidney Foundation, irrespective of diagnosis, the stage of the disease is based on the level of kidney function: Stage Description GFR(mL/min/1.73 m(2)) 1 Kidney damage with normal or decreased GFR 90 2 Kidney damage with mild decrease in GFR 60-89 3 Moderate decrease in GFR 30-59 4 Severe decrease in GFR 15-29 5 Kidney failure <15 (or dialysis) 35 RUN DATE: 08/24/13 [facility] LAB LIVE PAGE 1 RUN TIME: 919 [facility] [employer] [place], [place] [address] Specimen Inquiry Name: URIEL CLEMONS : [address]: Gifty Gamble NP Acct: [id number] Unit: [id number] AGE: 58 Location: [facility] Re08/22/13 SEX: F Status: REG REF SPEC: [id number] MARK: 08/22/13-[address]: Gifty Gamble NP REQ: [id number] RECD: 08/22/13 STATUS: COMP _ SOURCE: URINE SPDESC: ORDERED: Urine Culture QUERIES: [employer] Number [id number] Procedure Result Verified Site Urine Culture Final 08/24/13- 918 ML Organism 1 ESBL ESCHERICHIA COLI [place] Count >100,000 (Many) CFU/ML Consistent with previous results. 1. ESBL ESCHERICHIA COLI M.I.C. RX --------- ------ Ampicillin >=32 R Cefazolin >=64 R Cefepime R Ceftriaxone >=64 R Ciprofloxacin >=4 R Gentamicin >=16 R Imipenem <=0.25 S Levofloxacin >=8 R Meropenem <=0.25 S Nitrofurantoin 64 I Tetracycline >=16 R Trimethoprim/Sulfamethoxazole >=320 R Amoxicillin/Clavulanic Acid >=32 R Aztreonam >=64 R Contact the Microbiology Department for any additional antibiotic reporting. END OF REPORT * ML=Testing performed at Main Lab DEPARTMENT OF PATHOLOGY, [facility] [employer] [place] [address] Yony Crawford M.D. Director [facility] Permit #[id number] RUN DATE: 06/29/13 [facility] LAB LIVE PAGE 1 RUN TIME: [address] [place] [address] Specimen Inquiry Name: URIEL CLEMONS : [address]: Gifty Gamble NP Acct: [id number] Unit: [id number] AGE: 58 Location: [facility] Re06/26/13 SEX: F Status: REG REF SPEC: [id number] MARK: 06/26/13 [facility] DR: Gifty Gamble NP REQ: [id number] RECD: 06/26/13 STATUS: COMP _ SOURCE: URINE SPDES: ORDERED: Urine Culture QUERIES: [facility] Number [id number] Procedure Result Verified Site Urine Culture Final 06/29/13927 ML Organism 1 ESBL ESCHERICHIA COLI [place] Count >100,000 (Many) CFU/ML This isolate is an Extended Spectrum Beta-Lactamase Oral And Maxillofacial Surgery Resident (ESBL) strain, and as such is considered resistant for all penicillins, cephalosporins and aztreonam. 1. ESBL ESCHERICHIA COLI M.I.C. RX --------- ------ Ampicillin >=32 R Cefazolin >=64 R Cefepime R Ceftriaxone >=64 R Ciprofloxacin >=4 R Gentamicin >=16 R Imipenem <=0.25 S Levofloxacin >=8 R Meropenem <=0.25 S Nitrofurantoin 64 I Tetracycline >=16 R Pipercillin/Tazobactam 16 S Trimethoprim/Sulfamethoxazole >=320 R Amoxicillin/Clavulanic Acid <=2 S Aztreonam >=64 R CONTINUED ON NEXT PAGE * ML=Testing performed at Main Lab DEPARTMENT OF PATHOLOGY, [facility] [employer] [place], [place] [address] Yony Crawford M.D. Director [facility] Permit #[id number] RUN DATE: 06/29/13 [facility] LAB LIVE PAGE 2 RUN TIME: 928 [facility] [employer] [employer] [place], [place] [address] Specimen Inquiry Patient: URIEL CLEMONS [id number] (Continued) Specimen: [id number] Collected: 06/26/13 Received: 06/26/13-1555 (Continued) Procedure Result Verified Site Urine Culture Final (continued) Contact the Microbiology Department for any additional antibiotic reporting. END OF REPORT * ML=Testing performed at Main Lab DEPARTMENT OF PATHOLOGY, [facility] [employer] [employer] [place], [place] [address] Yony Crawford M.D. Director [facility] Permit #[id number] RUN DATE: 01/13/13 [facility] LAB LIVE PAGE 1 RUN TIME: 818 [facility] [employer] [employer] [place], [place] [address] Specimen Inquiry Name: URIEL CLEMONS : [address]: Caryl Hernandez MD Acct: [id number] Unit: [id number] AGE: 57 Location: [facility] Re01/10/13 SEX: F Status: REG REF SPEC: [id number] MARK: 01/10/13-[address]: Caryl Hernandez MD REQ: [id number] RECD: 01/10/13 STATUS: COMP _ SOURCE: URINE SPDES: ORDERED: Urine Culture QUERIES: [employer] Number [id number] Procedure Result Verified Site Urine Culture Final 01/13/13- 0819 ML Organism 1 MORGANELLA MORGANII [place] Count >100,000 (Many) CFU/ML 1. MORGANELLA MORGANII M.I.C. RX --------- ------ Ampicillin >=32 R Cefazolin >=64 R Cefepime <=1 S Ceftriaxone <=1 S Ciprofloxacin <=0.25 S Gentamicin <=1 S Levofloxacin <=0.12 S Meropenem <=0.25 S Nitrofurantoin 128 R Tetracycline R Pipercillin/Tazobactam <=4 S Trimethoprim/Sulfamethoxazole <=20 S Amoxicillin/Clavulanic Acid >=32 R Aztreonam <=1 S Contact the Microbiology Department for any additional antibiotic reporting. END OF REPORT * ML=Testing performed at Main Lab DEPARTMENT OF PATHOLOGY, [address] [place] [address] Yony Crawford M.D. Director [facility] Permit #[id number] 38 FASTING 39 HDL Interpretation: Undesirable: High Risk: Less than 40 mg/dL Desirable: Low Risk: Greater than 60 mg/dL 40 LDL Interpretation: Low Risk Optimal Level: LDL Less than 100 mg/dL Near or Above Optimal: LDL 100-129 mg/dL Borderline High Risk: LDL 130-159 mg/dL High Risk: LDL 160-189 mg/dL Very High Risk: LDL Greater than 189 mg/dL 41 CHOLESTEROL INTERPRETATION: Desirable: Less than 200 MG/DL Borderline-High Risk: 200-239 MG/DL High-Risk: 240 MG/DL and over 42 HDL INTERPRETATION: Undesirable: High Risk: Less than 40 MG/DL Desirable: Low Risk: Greater than 60 MG/DL 43 LDL INTERPRETATION: Low Risk Optimal Level: LDL Less than 100 MG/DL Near or Above Optimal: LDL 100-129 MG/DL Borderline High Risk: LDL 130-159 MG/DL High Risk: LDL 160-189 MG/DL Very High Risk: LDL Greater than 189 MG/DL 44 Anion gap measurement may be of limited value in the presence of any alkalosis, especially in a combined acid base disorder. . 45 A metabolite of Naproxen, O-desmethylnaproxen, has been shown to interfere with the Jendrassik-[place] method for measuring total bilirubin. Samples from patients who have taken Naproxen have shown spurious elevation in total bilirubin levels. 46 Because ethnic data is not always readily available, this report includes an eGFR for both -Americans and non- Americans. The National Kidney Disease Education Program (NKDEP) does not endorse the use of the MDRD equation for patients that are not between the ages of 18 and 70, are , have extremes of body size, muscle mass, or nutritional status, or are non- or non-. According to the National Kidney Foundation, irrespective of diagnosis, the stage of the disease is based on the level of kidney function: Stage Description GFR(mL/min/1.73 m(2)) 1 Kidney damage with normal or decreased GFR 90 2 Kidney damage with mild decrease in GFR 60-89 3 Moderate decrease in GFR 30-59 4 Severe decrease in GFR 15-29 5 Kidney failure <15 (or dialysis) 47 ---- RUN DATE: 11/17/11 [facility] NMI LIVE PAGE 1 RUN TIME: 1615 Specimen Inquiry RUN USER: INTERFACE -- Name: KACIURIEL#: [id number] Status: REG REF Re11/16/11 Age/Sex: 56/F Unit#: [id number] Location: [facility] : [birth year] -- Specimen: [id number] Spec Date:11/16/11-[address]: Gifty Gamble [facility] Spec Type: CYTOLOGY Received:11/17/11-1025 Copies to: SOURCE ECTOCERVICAL/ENDOCERVICAL Thin Prep with Reflex HPV Test PATIENT INFORMATION ACTUAL COLLECTION DATE: 11/16/11 ? No POST MENOPAUSAL? Yes HYSTERECTOMY? No PREVIOUS ABNORMAL PAP SMEARS No PATIENT HISTORY: Last menstrual period at aound 46 ADEQUACY OF SPECIMEN Satisfactory for evaluation * Transformation zone component identified * DIAGNOSIS NEGATIVE FOR INTRAEPITHELIAL LESION OR MALIGNANCY * This Pap test was evaluated with the assistance of the ThinPrep Pap Test Imaging System. The Pap Smear is a screening test designed to aid in the detection of premalign ant and malignant conditions of the uterine cervix. It is not a diagnostic procedure a nd should not be used as the sole means of detecting cervical cancer. Both false- positiv e and false-negative reports do occur. Depending on your risk status, a Pap smear eliza uld be obtained and evaluated every one to three years. Final Interpretation electronically signed by: Vannesa BHATIA(ASCP) 11/17/11 161 5 -- -- DEPARTMENT OF PATHOLOGY, [address] [place] [address] [facility] Permit #[id number] Yony Crawford M.D. Director Pj Alcala M.D. Plumbing Manager Dir renzo -- 48 Anion gap measurement may be of limited value in the presence of any alkalosis, especially in a combined acid base disorder. . 49 A metabolite of Naproxen, O-desmethylnaproxen, has been shown to interfere with the Jendrassik-[place] method for measuring total bilirubin. Samples from patients who have taken Naproxen have shown spurious elevation in total bilirubin levels. 50 Because ethnic data is not always readily available, this report includes an eGFR for both -Americans and non- Americans. The National Kidney Disease Education Program (NKDEP) does not endorse the use of the MDRD equation for patients that are not between the ages of 18 and 70, are , have extremes of body size, muscle mass, or nutritional status, or are non- or non-. According to the National Kidney Foundation, irrespective of diagnosis, the stage of the disease is based on the level of kidney function: Stage Description GFR(mL/min/1.73 m(2)) 1 Kidney damage with normal or decreased GFR 90 2 Kidney damage with mild decrease in GFR 60-89 3 Moderate decrease in GFR 30-59 4 Severe decrease in GFR 15-29 5 Kidney failure <15 (or dialysis) 51 REVIEWED BY PJ ALCALA MD 52 Warning: A positive result is not useful for establishing a diagnosis of syphilis. In most situations, such a result may reflect a prior treated infection; a negative result can exclude a diagnosis of syphilis except for incubating or early primary disease. 53 Test Performed by: [facility] [address] [place] [id number] Sewer Tapper: Moy Tirado III, M.D. 54 Test Performed by: [facility] [address] [place] [address] [place] [address] Sewer Tapper: Moy Tirado III, M.D. 55 Serologic response to B. burgdorferi infection is not detected, but cannot rule out early infection during which low or undetectable antibody levels to B. burgdorferi may be present. If clinically indicated, a new serum specimen should be submitted in 7-14 days. Test Performed by: [facility] [address] [place] [address] Sewer Tapper: Moy Tirado III, M.D. 56 Anion gap measurement may be of limited value in the presence of any alkalosis, especially in a combined acid base disorder. . 57 Because ethnic data is not always readily available, this report includes an eGFR for both -Americans and non- Americans. The National Kidney Disease Education Program (NKDEP) does not endorse the use of the MDRD equation for patients that are not between the ages of 18 and 70, are , have extremes of body size, muscle mass, or nutritional status, or are non- or non-. According to the National Kidney Foundation, irrespective of diagnosis, the stage of the disease is based on the level of kidney function: Stage Description GFR(mL/min/1.73 m(2)) 1 Kidney damage with normal or decreased GFR 90 2 Kidney damage with mild decrease in GFR 60-89 3 Moderate decrease in GFR 30-59 4 Severe decrease in GFR 15-29 5 Kidney failure <15 (or dialysis) Procedures Date CPT Code Description Status Comment 01/27/2018 12788 EKG Tracing & Interpretation Completed 07/15/2017 Mammogram Completed 06/15/2017 13483 Admin & Interp Of Health Risk Assessment w/ Completed Patient 04/13/2017 04729 EKG Tracing & Interpretation Completed 06/23/2016 Mammogram Completed 06/18/2016 49779 Inject/Drain Joint/Bursa Small W/O US Completed 06/13/2015 Mammogram Completed 07/08/2014 Colonoscopy Completed 04/22/2014 Mammogram Completed 04/19/2013 Mammogram Completed 05/17/2012 99751 EKG Tracing & Interpretation Completed 12/06/2011 Mammogram Completed 01/13/2011 27514 EKG Tracing & Interpretation Completed 11/23/2010 Mammogram Completed 08/12/2008 Mammogram Completed 08/05/2008 37464 EKG Tracing & Interpretation Completed 06/06/2007 53924 EKG Tracing & Interpretation Completed 06/06/2007 21544 EKG Tracing & Interpretation Completed 07/01/2005 Colonoscopy Completed 08/01/2002 Bone Mineral Density Test Completed Normal Encounters Type Date Location Provider CPT E/M Dx Office Visit 01/27/2018 [facility] Olga Bradford, 49194 R60.0 9:40a - [place] R94.31 Office Visit 07/19/2017 8:50a [facility] [address] M.D. 61641 R30.0 - [place] N39.0 Z87.440 Office Visit 06/15/2017 10:40a [facility] Gifty Gamble N.P. 39600 Z00.01 - [place] Z12.31 E78.00 K21.9 J30.9 Z00.00 Office Visit 04/13/2017 2:00p [facility] [place] [address] Z01.818 [place] M25.562 Office Visit 11/30/2016 3:00p [facility] Gifty Gamble, N.P. 60574 N39.0 - [place] Office Visit 10/28/2016 11:40a [facility] Gifty Gamble N.P. 86719 J01.90 - [place] Office Visit 06/23/2016 2:20p [facility] [place] [address] J01.90 - [place] Office Visit 06/18/2016 8:00a [facility] [place] [address] M18.11 C.M.A. Office Visit 06/14/2016 9:20a [facility] Gifty Gamble, N.P. 74193 Z00.00 - [place] Z12.31 K21.9 E78.00 J30.9 M65.4 R60.0 Office Visit 05/24/2016 4:20p [facility] Gifty Gamble, N.P. 44197 N30.01 - [place] N39.0 Office Visit 04/06/2016 11:40a [facility] [place] [address] R30.0 - [place] Office Visit 01/07/2016 9:00a [facility] Gifty Gamble N.P. 04516 J20.9 - [place] R60.0 Office Visit 12/15/2015 11:40a [facility] Gifty Gamble N.P. 22143 J20.9 - [place] Office Visit 10/15/2015 9:00a [facility] Gifty Gamble N.P. 84917 N81.10 - [place] R39.15 Office Visit 08/25/2015 4:00p [facility] Gifty Gamble, N.P. 95753 J01.00 - [place] Office Visit 08/06/2015 1:20p [facility] Gifty Gamble N.P. 69171 N39.0 - [place] Office Visit 06/05/2015 8:40a [facility] Gifty Gamble N.P. 49965 Z00.00 - [place] E78.0 Z12.39 K21.9 Office Visit 05/02/2015 1:00p [facility] - Rick Tyler, BENITA [address]2537 R21 [place] S00.262A Office Visit 01/15/2015 3:00p [facility] Gifty Gamble, N.P. 99605 786.2 - [place] 784.91 Office Visit 01/02/2015 11:20a [facility] Nora Tyler, BENITA 70302 461.0 [place] 786.2 Office Visit 11/19/2014 2:40p [facility] Gifty Gamble, N.P. 19498 461.9 - [place] 461.0 Office Visit 09/30/2014 4:00p [facility] Gifty Gamble, N.P. 03973 461.9 - [place] 461.0 Office Visit 09/26/2014 10:00a [facility] Olga Bradfodr 36498 465.9 - [place] M.D. Office Visit 08/22/2014 10:20a [facility] Gifty Gamble, N.P. 55953 599.0 - [place] Office Visit 04/25/2014 8:40a [facility] Gifty Gamble, N.P. 95559 530.81 - [place] 477.9 Office Visit 03/21/2014 10:40a [facility] Gifty Gamble, N.P. 75351 V70.0 - [place] V76.10 477.9 530.81 v04.89 Office Visit 08/22/2013 1:00p [facility] Gifty Gamble, N.P. 89201 599.0 - [place] 788.30 477.9 Office Visit 06/26/2013 9:00a [facility] Gifty Gamble, N.P. 03783 599.0 - [place] 784.91 Office Visit 03/20/2013 1:40p [facility] Gifty Gamble, N.P. 73624 V70.0 - [place] V76.10 V72.31 272.4 Office Visit 01/10/2013 9:40a [facility] - Caryl Hernandez M.D. 35128 599.0 [place] 616.10 728.9 Office Visit 05/17/2012 10:00a [facility] Gifty Gamble, N.P. 21515 V72.84 - [place] 618.01 618.04 Office Visit 11/16/2011 1:40p [facility] Gifty Gamble, N.P. 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 719.45 272.4 Office Visit 12/25/2010 1:30p [facility] Umair Burton 59005 882.0 Of [facility]ich[facility] Castillo R.P.A.-Татьяна E906.0 Office Visit 11/12/2010 8:45a DO Not Use [facility] Gifty Gamble, 80314 V70.0 N.P. V72.31 272.4 389.9 Office Visit 05/26/2010 8:30a DO Not Use [facility] Gifty Gamble, 53576 724.2 N.P. 719.45 720.2 Office Visit 05/28/2009 2:30p DO Not Use [facility] Gifty Varn, 02395 599.0 N.P. V04.81 Office Visit 10/16/2008 9:30a DO Not Use Gifty Varn, 03025 719.45 [facility] N.P. 110.5 Office Visit 08/05/2008 8:45a DO Not Use Gifty Varn, 08394 V72.31 [facility] N.P. V06.1 Office Visit 06/27/2007 9:30a DO Not Use Gifty Varn, 07199 786.50 [facility] N.P. 729.5 Office Visit 06/06/2007 9:30a DO Not Use Gifty Varn, 74152 V72.31 [facility] N.P. 786.50 Plan of Care Future Appointment(s):06/16/2018 8:40 am - Gifty Gamble, N.P. at [facility] - Gqaskiwve34/06/2018 - Gifty Gamble, N.P.R60.0 Localized edemaNew Therapy:Physical TherapyComments:I am referring you for physical therapy. I would urge you to take your diuretic daily and avoid salty foods.When you are not on your feet elevate them.If the PT goes well, you may benefit from a home leg compression machine.
[2018-03-26 09:44] VITALS: BP 140/73
--- NOTE | 2018-03-26 09:55 | UC ---
Skin Complaint HPI - HPI Summary HPI Summary: This patient is a 63 year old F presenting to [facility] with a chief complaint of insect bite to right upper arm that occurred 1 week ago. The patient rates the pain 1/10 in severity. Symptoms aggravated by nothing. Symptoms alleviated by nothing. Patient reports pruritus, erythema, and heat around the area of the insect bite, and headache. Patient denies fever. - History of Current Complaint Chief Complaint: UCUpperExtremity Time Seen by Provider: 03/26/18 09:44 Stated Complaint: R ARM PAIN Hx Obtained From: Patient ?: No Onset/Duration: Sudden Onset, Lasting Weeks, Still Present Skin Exposure Onset/Duration: Weeks Ago Timing: Constant Onset Severity: Mild Current Severity: Mild Pain Intensity: 1 Pain Scale Used: 0-10 Numeric Location: Other - Right upper arm Character: Pruritus, Redness Aggravating Factor(s): Nothing Alleviating Factor(s): Nothing Associated Signs & Symptoms: Negative: Fever Related History: Insect Bite/Sting - Allergy/Home Medications Allergies/Adverse Reactions: Allergies Allergy/AdvReac Type Severity Reaction Status Date / Time erythromycin base Allergy Dizziness Verified 03/26/18 09:44 nitrofurantoin Allergy Hives Verified 03/26/18 09:44 [From Macrobid] Home Medications: Home Medications Albuterol HFA INHALER* [Ventolin HFA Inhaler*] 03/26/18 [History] Cetirizine* [ZyrTEC 10 MG TAB*] 10 mg PO DAILY 03/26/18 [History Confirmed 03/26] Ciclopirox/Skin Cleanser No.28 [Ciclodan 0.77% Cream Kit] 544 gm TP 03/26/18 [ History] Fluticasone Furoate [Flonase Sensimist] 27.5 mcg NA 03/26/18 [History] Hydrochlorothiazide TAB* [Hydrodiuril TAB*] 25 mg PO DAILY 03/26/18 [History Confirmed 03/26/18] Omeprazole CAP* [Prilosec CAP* 20 MG] 20 03/26/18 [History] Review of Systems Constitutional: Other - Negative fever Skin: Other - Positive insect bite, pruritis, erythema, and heat in the area of the insect bite Neurological: Headache All Other Systems Reviewed And Are Negative: Yes PMH/Surg Hx/FS Hx/Imm Hx Previously Healthy: Yes Endocrine History: Other Other Endocrine History: Negative diabetes Cardiovascular History: Other Other Cardiovascular History: Negative HTN - Surgical History Surgical History: Yes Surgery Procedure, Year, and Place: knee and hip replacement - Family History Known Family History: Positive: Other - Negative breast CA - Social History Occupation: Employed Full-time Lives: With Family Alcohol Use: Daily Substance Use Type: None Smoking Status (MU): Never Smoked Tobacco Physical Exam - Summary Physical Exam Summary: General: well-appearing, no pain distress Skin: warm, color reflects adequate perfusion, dry, 20 cm x 10 cm area of erythema on the right upper arm. Blanching. Head: normal Eyes: EOMI, JOHNNIE ENT: normal Neck: supple, nontender Respiratory: CTA, breath sounds present Cardiovascular: RRR Abdomen: soft, nontender Bowel: present Musculoskeletal: normal, strength/ROM intact Neurological: sensory/motor intact, A&O x3 Psychological: affect/mood appropriate Triage Information Reviewed: Yes Vital Signs: Initial Vital Signs Temp 98.1 F 03/26/18 09:39 Pulse 107 03/26/18 09:39 Resp 18 03/26/18 09:39 BP 140/73 03/26/18 09:39 Pulse Ox 100 03/26/18 09:39 Vital Signs Reviewed: Yes Course/Dx - Course Course Of Treatment: PROBABLE CELLULITIS. WILL TREAT WITH KEFLEX. THE PATIENT WILL F/U WITH PMD IN 1-3 DAYS FOR RE EVAL. IF IT IS A LOCALIZED ALLERGIC REACTION, CONSIDER A COURSE OF PO STEROIDS. RECHECK SOONER IF WORSE. - Diagnoses Provider Diagnoses: RIGHT ARM RASH Discharge - Sign-Out/Discharge Documenting (check all that apply): Patient Departure All imaging exams completed and their final reports reviewed: No Studies - Discharge Plan Condition: Stable Disposition: HOME Prescriptions: Cephalexin CAP* [Keflex CAP*] 500 mg PO QID #40 cap Patient Education Materials: Cellulitis (ED) Referrals: Olga Bradford MD [Primary Care Provider] - Additional Instructions: FOLLOW UP WITH YOUR DOCTOR IN THE NEXT 1-3 DAYS. IF NOT IMPROVING, THE RASH MAY BE A WORSENING CELLULITIS OR A LOCALIZED ALLERGIC REACTION. A LOCALIZED ALLERGIC REACTION MAY BENEFIT FROM STEROIDS. GET RECHECKED FOR ANY WORSENING OF YOUR CONDITION; FEVER, YOU FEEL ILL, SPREAD OF THE RASH OR QUESTIONS OR CONCERNS. - Billing Disposition and Condition Condition: STABLE Disposition: Home - Attestation Statements Document Initiated by Scribe: Yes Documenting Scribe: Keya Marti Provider For Whom Scribe is Documenting (Include Credential): Michael Steinberg MD Scribe Attestation: IKeya, scribed for Michael Steinberg MD on 03/26/18 at 1055. Scribe Documentation Reviewed: Yes Provider Attestation: The documentation as recorded by the [email or web address] accurately reflects the service I personally performed and the decisions made by me, Michael Steinberg MD
== END 2018-03-26 10:05 | disposition home or self-care (01) ==
LOC: UCEAST 09:35
DX: R21 Rash and other nonspecific skin eruption (principal); Z88.1 Allergy status to other antibiotic agents
CPT/HCPCS: 99212; G0463

== ENCOUNTER 2018-10-25 07:40 | Day surgery (SDC) | payer OTHER ==
[~2018-10-25 07:40] MED LIST: Buffered Lidocaine 1% SYRIN* 1 ML/SYRINGE INTRADERM ONE
[2018-10-25] MEDS ORDERED: Ondansetron INJ* 2 MG/ML VIAL ONE (09:08)
[2018-10-25] MEDS ORDERED: fentaNYL* 50 MCG/ML 2 ML VIAL (100 MCG VIAL) ONE (09:09)
[2018-10-25] MEDS ORDERED: Midazolam* 1 MG/ML 2 ML VIAL (2 MG) ONE (09:09)
[2018-10-25 10:23] VITALS: BP 125/64
[2018-10-25] MEDS ORDERED: Neomycin/Polymy/Dex OPTH.SUSP* MAXITROL 0.1% 5 ML ONE (11:06)
[2018-10-25] MEDS ORDERED: acetaZOLAMIDE TAB* 250 MG ONE (11:06)
[2018-10-25] MEDS ORDERED: Phenylephrine OPHTH SOL 2.5%* 2 ML ONE (11:06)
[2018-10-25] MEDS ORDERED: Ketorolac 0.5% OPHTH (NF) 0.5 % 5 ML BTL ONE (11:06)
[2018-10-25] MEDS ORDERED: Lidocaine 1%* 5 ML VIAL ONE (11:06)
[2018-10-25] MEDS ORDERED: Lidocaine 2% EPI 1:200000 MPF*10-20 ML VIAL ONE (11:06)
[2018-10-25] MEDS ORDERED: Cyclopentolate 1% OPTH.SOL* 2 ML BTL ONE (11:06)
[2018-10-25] MEDS ORDERED: Povidone Iodine 5% OPTH* 30 ML BTL ONE (11:06)
[2018-10-25] MEDS ORDERED: Proparacaine 0.5% OPHTH.SOL* 15 ML BTL ONE (11:07)
--- NOTE | 2018-10-25 11:55 | OP ---
OPERATIVE NOTE: DATE OF OPERATION: 10/25/18 DATE OF : 51 SURGEON: Nikunj Santana M.D. PREOPERATIVE DIAGNOSIS: Cataract, right eye. POSTOPERATIVE DIAGNOSIS: Cataract, right eye. OPERATIVE PROCEDURE: Extracapsular cataract extraction with intraocular lens implant right eye. PROCEDURE: The patient was brought to the operating room after being given 1/2% Alcaine with epineph rine drops in the preoperative area. The eye was prepped and draped in the usual sterile fashion. S terile drape and eyelid speculum were placed. Again, topical 1/2% Alcaine with epinephrine was given . A paracentesis incision was made at the 9 o'clock position with the No.75 blade. Clear cornea inc ision 2.2 x 2.2-mm was created at the 12 o'clock position starting at the anterior limbus using the 2 .2-mm keratome. The anterior chamber was irrigated with 0.4 mL of 1% non-preservative intracameral l idocaine and filled with DisCoVisc. A capsulorrhexis was completed using the cystotome and the Utrat a forceps. Hydrodissection was performed with balanced salt solution. The lens nucleus was removed w ith the Phacoemulsification handpiece without incident. Cortex was removed with the irrigation-aspir ation handpiece. The capsular bag was re-inflated using DisCoVisc and an [id number] 16 inserted with the shooter, oriented to the 19- degree meridian, horizontal reference peters made with the patient in a seated position in the preoperative area. All measurements were confirmed with ORA. The irrigation-a spiration handpiece was used to remove all residual DisCoVisc. The eye was refilled with balanced sa lt solution and the wound checked and found to be watertight. Topical Maxitrol drops were given. [id number]/[facility] #: [id number]
[2018-10-26] MEDS ORDERED: Acetaminophen TAB* 325 MG PO PRN (05:00)
== END 2018-10-25 10:24 | disposition home or self-care (01) ==
LOC: OREAST 07:40
PROVIDERS: ATTEND Specialist
DX: H25.811 Combined forms of age-related cataract, right eye (principal); E78.5 Hyperlipidemia, unspecified; J45.909 Unspecified asthma, uncomplicated; K21.9 Gastro-esophageal reflux disease without esophagitis; Z87.891 Personal history of nicotine dependence; M19.90 Unspecified osteoarthritis, unspecified site
CPT/HCPCS: A9270-GY; J2250; J2405; J3010; V2788

== ENCOUNTER 2018-11-01 08:38 | Day surgery (SDC) | payer OTHER ==
[~2018-11-01 08:38] MED LIST changes: +Acetaminophen TAB* 325 MG PO PRN
[2018-11-01] MEDS ORDERED: Ondansetron INJ* 2 MG/ML VIAL ONE (10:41)
[2018-11-01] MEDS ORDERED: Midazolam* 1 MG/ML 2 ML VIAL (2 MG) ONE (10:41)
[2018-11-01 11:23] VITALS: BP 138/66
[2018-11-01] MEDS ORDERED: acetaZOLAMIDE TAB* 250 MG ONE (11:27)
[2018-11-01] MEDS ORDERED: Ketorolac 0.5% OPHTH (NF) 0.5 % 5 ML BTL ONE (11:27)
[2018-11-01] MEDS ORDERED: Lidocaine 1%* 5 ML VIAL ONE (11:27)
[2018-11-01] MEDS ORDERED: Phenylephrine OPHTH SOL 2.5%* 2 ML ONE (11:27)
[2018-11-01] MEDS ORDERED: Lidocaine 2% EPI 1:200000 MPF*10-20 ML VIAL ONE (11:27)
[2018-11-01] MEDS ORDERED: Neomycin/Polymy/Dex OPTH.SUSP* MAXITROL 0.1% 5 ML ONE (11:27)
[2018-11-01] MEDS ORDERED: Proparacaine 0.5% OPHTH.SOL* 15 ML BTL ONE (11:27)
[2018-11-01] MEDS ORDERED: Povidone Iodine 5% OPTH* 30 ML BTL ONE (11:27)
[2018-11-01] MEDS ORDERED: Cyclopentolate 1% OPTH.SOL* 2 ML BTL ONE (11:27)
--- NOTE | 2018-11-01 12:39 | OP ---
OPERATIVE NOTE: DATE OF OPERATION: 11/01/18 DATE OF : 51 SURGEON: Nikunj Santana M.D. PREOPERATIVE DIAGNOSIS: Cataract, left eye. POSTOPERATIVE DIAGNOSIS: Cataract, left eye. OPERATIVE PROCEDURE: Extracapsular cataract extraction with intraocular lens implant, left eye. DESCRIPTION OF PROCEDURE: The patient was brought to the operating room after being given 1/2% Alcai ne with epinephrine drops in the preoperative area. The eye was prepped and draped in the usual ster ile fashion. Sterile drape and eyelid speculum were placed. Again, topical 1/2% Alcaine with epinep hrine was given. A paracentesis incision was made at the 3 o'clock position with the No.75 blade. Cl ear cornea incision 2.2 x 2.2-mm was created at the 6 o'clock position starting at the anterior limbu s using the 2.2-mm keratome. The anterior chamber was irrigated with 0.4 mL of 1% non-preservative i ntracameral lidocaine and filled with DisCoVisc. A capsulorrhexis was completed using the cystotome and the Utrata forceps. Hydrodissection was performed with balanced salt solution. The lens nucleus was removed with the Phacoemulsification handpiece without incident. Cortex was removed with the irr igation-aspiration handpiece. The capsular bag was re-inflated using DisCoVisc and an [id number] 16.5 im plant was inserted with the shooter, oriented to the 152-degree meridian. All measurements confirmed with ORA. The irrigation-aspiration handpiece was used to remove all residual DisCoVisc. The eye wa s refilled with balanced salt solution and the wound checked and found to be watertight. Topical Max itrol drops were given. [id number]/[facility] #: [id number]
== END 2018-11-01 11:35 | disposition home or self-care (01) ==
LOC: OREAST 08:38
PROVIDERS: ATTEND Specialist
DX: H25.812 Combined forms of age-related cataract, left eye (principal); Z87.891 Personal history of nicotine dependence; J45.909 Unspecified asthma, uncomplicated; M19.90 Unspecified osteoarthritis, unspecified site; K21.9 Gastro-esophageal reflux disease without esophagitis
CPT/HCPCS: A9270-GY; J2250; J2405; V2788